=== PATIENT | female | born 1945 | race Asian ===

== ENCOUNTER → 2022-09-01 | Outpatient (CLI) | payer MEDICARE, OTHER ==
[~2022-09-01] MED LIST: CALC-1038 PO; CHL25 PO; CHOL500043 PO; METF-1211 PO; OMEP20 PO; SIMV-260 PO; TELM20 PO
== END | disposition home or self-care (01) ==
LOC: RADMN 12:43
PROVIDERS: ATTEND Podiatrist Foot & Ankle Surgery
DX: M19.071 Primary osteoarthritis, right ankle and foot (principal); M77.31 Calcaneal spur, right foot; M79.671 Pain in right foot
CPT/HCPCS: 73630-TC